=== PATIENT | female | born 1945 | race Caucasian/White ===

== ENCOUNTER 2018-01-27 04:30 | Inpatient (IN) | payer OTHER ==
[~2018-01-27] VITALS: Ht 167.6 cm; Wt 84.8 kg
--- NOTE | 2018-01-27 12:47 | Admission Core Measures ---
Acute Coronary Syndrome (CM) ACS Core Measures Acute Coronary Syndrome Diagnosis No Congestive Heart Failure (NEW) CHF Core Measures Congestive Heart Failure Diagnosis No Cerebrovascular Accident (NEW) CVA Core Measures CVA/TIA Diagnosis No Venous Thromboembolism VTE Core Alhaji (View Protocol) VTE Risk Factors Surgery No Mechanical VTE Prophylaxis d/t N/A MechProphylax Ordered No VTE Pharm Prophylaxis d/t NA PharmProphylax ordered Problem List As ranked by this Provider includes Assessment & Plan 1. Unilateral primary osteoarthritis, left hip HOME MEDS Home Med List No Known Home Medications
[2018-01-27] MEDS ORDERED: MIRALAX17 G1 PO (12:51)
[2018-01-27] MEDS ORDERED: PRILOSEC OTC20 M1 PO (12:51)
[2018-01-27] MEDS ORDERED: COLACE100 M1 PO (12:51)
[2018-01-27] MEDS ORDERED: DILAUDID2 M1 PO (12:51)
[2018-01-27] MEDS ORDERED: ASPIRIN EC81 M1 PO (12:51)
--- NOTE | 2018-01-27 12:55 | Patient Discharge Instructions ---
Discharge Instructions General Discharge Information You were seen/treated for: Left hip pain related to unilateral primary osteoarthritis You had these procedures: Left total hip replacement Watch for these problems: Increasing pain despite the use of pain medication Increasing redness, warmth or swelling Drainage of any type from incision Inability to bear weight on operative leg Persistent nausea and vomiting Fever greater than 101.5 degrees Do not soak the wound: Yes No bath, but you may shower: Yes Other wound care: Please keep wound clean and dry. No ointments or lotions of any type on or near incision at any time. No exceptions. Your dressing will be changed by your nurse on the second day after your surgery. Daily dry dressing changes are recommended each day thereafter. Do not soak your wound in a bath at any time until otherwise indicated by your surgeon. You may shower, please dry wound immediately after shower with a clean towel. Special Instructions: Aspirin: You are taking this medication to help prevent blood clot formation. Please take with food to protect your stomach lining. Please take as directed. Constipation: Pain medication can cause constipation. Dr. Sherman has recommended that you take Colace and miralax each day. You may discontinue this medication if you develop loose stool or diarrhea. If you wish to continue this medication, it is available over the counter. If you are unable to move your bowels after several days, if you are unable to pass gas and are developing bloating, nausea, or vomiting as a result, please contact your doctor. Diet Continue normal diet: Yes Recommended Diet: Regular Activity Full Activity/No Limits: No Activity Self Limited: Yes Pounds, do NOT lift more than: 10 Acute Coronary Syndrome Inclusion Criteria At DC or during hospital stay patient has or had the following: ACS DIAGNOSIS No Discharge Core Measures Meds if any: Prescribed or Continued at Discharge Meds if any: NOT Prescribed or Continued at Discharge Congestive Heart Failure Inclusion Criteria At DC or during hospital stay patient has or had the following: CHF DIAGNOSIS No Discharge Core Measures Meds if any: Prescribed or Continued at Discharge Meds if any: NOT Prescribed or Continued at Discharge Cerebrovascular accident Inclusion Criteria At DC or during hospital stay patient has or had the following: CVA/TIA Diagnosis No Discharge Core Measures Meds if any: Prescribed or Continued at Discharge Meds if any: NOT Prescribed or Continued at Discharge Venous thromboembolism Inclusion Criteria VTE Diagnosis No VTE Type NONE VTE Confirmed by (Test) NONE Discharge Core Measures - Per Current guidelines, there needs to be overlap - treatment for the first 5 days of Warfarin therapy. - If discharged on Warfarin prior to 5 days of - overlap therapy, the patient will need to be - assessed for post discharge needs including - *Post discharge parental anticoagulation - *Warfarin and/or parental anticoagulation education - *Follow up date to check INR post discharge At least 5 days overlap therapy as Inpatient No Meds if any: Prescribed or Continued at Discharge Note: Overlap Therapy is Warfarin and Anticoagulant Meds if any: NOT Prescribed or Continued at Discharge
--- NOTE | 2018-01-27 12:57 | Surgical Discharge Summary ---
Visit Information Visit Dates Admission Date: 01/27/18 Discharge Date: 01/28/2018 History of Present Illness Chief Complaint: Left hip pain related to unilateral primary osteoarthritis Medical History Isolation History: Standard Surgical History Pertinent Surgical History: non-contributory Review of Systems: See H&P Hospital Course Course Attending Physician: Carlos Sherman MD Primary Care Physician: Benjie Rodriguez MD Hospital Course: Patient was admitted to the hospital for an elective total joint replacement. The procedure was tolerated well and patient was transferred to a general surgical floor. Diet was advanced and tolerated.. The patient was evaluated and treated by physical therapy. At the time of hospital discharge, the vital signs were stable, neurovascular status was intact, and pain was controlled with the use of oral pain medications. Allergies: Coded Allergies: Penicillins (ANAPHYLAXIS 01/26/18) Disposition Summary Disposition Principal Diagnosis: Left hip unilateral primary osteoarthritis Additional Diagnosis: None Discharge Disposition: home health services Discharge Instructions General Discharge Information Code Status: Full Code Patient's Diet: Regular, advance as tolerated Patient's Activity: WBAT Follow-Up Instructions/Appts: Follow up with Dr. Sherman in 6 weeks from date of surgery. Please call office to arrange &/or confirm this appointment. Medications at Discharge Discharge Medications: Start taking the following new medications: Hydromorphone HCl (Dilaudid) 2 MG TABLET 1-2 Tablet ORAL EVERY 4-6 HOURS NEEDED as needed for PAIN Qty = 36 No Refills Docusate Sodium (Colace) 100 MG CAPSULE 1 Capsule ORAL TWICE DAILY Qty = 14 No Refills Instructions: DISCONTINUE USE IF YOU DEVELOP LOOSE STOOL OR DIARRHEA Polyethylene Glycol 3350 (Miralax) 17 GRAM POWD.PACK 1 Packet ORAL DAILY Qty = 7 No Refills Instructions: dissolve in water, DISCONTINUE USE IF YOU DEVELOP LOOSE STOOL OR DIARRHEA Omeprazole Magnesium (Prilosec Otc) 20 MG TABLET. 1 Tablet ORAL DAILY Qty = 30 No Refills Aspirin (Ecotrin*) 81 MG TABLET. 1 Tablet ORAL TWICE DAILY Qty = 60 No Refills
--- NOTE | 2018-01-27 15:12 | Operative Report ---
Operative/Inv Procedure Report Surgery Date: 01/27/18 Name of Procedure: Left total hip replacement Pre-Operative Diagnosis: Primary left hip DJD Post-Operative Diagnosis: Same Estimated Blood Loss: 300 Surgeon/Field Pipe Lines Supervisor: Lane MEDRANO,Carlos Rutherford Anesthesia: block Operative/Procedure Note Note: Description of Procedure: The patient was taken to the operating room and positively identified. After induction of spinal anesthesia and administration of appropriate pre-operative antibiotics, the patient was positioned supine on the operating room table and all bony prominences were well padded. After performing a surgical timeout, the left lower extremity was prepped and draped in the usual sterile fashion. A direct anterior approach was made to the left hip. The incision was carried sharply through superficial soft tissues to the level of the fascia. Meticulous hemostasis was maintained with Bovie electocautery. The fascia over the tensor fascia jasmina muscle was opened sharply and the interval between the TFL and the sartorius was entered bluntly taking care to stay lateral to the lateral femoral cutaneous nerve. Retractors were placed around the femoral neck and the pericapsular fat was identified. The ascending branches of the lateral femoral circumflex vessels were identified and carefully coagulated. The pericapsular fat and anterior capsule were then resected. A napkin ring osteotomy was performed and the femoral head was removed without difficulty. Attention was then turned to the acetabulum. After appropriate placement of retractors, the acetabulum was exposed. Soft tissue was cleaned from the acetabular margin and notch. Overhanging osteophytes were removed and the teardrop was exposed. The acetabulum was then sequentially reamed to accept a 54 mm [place] Tritanium hemispherical solid shell. This was impacted into place in the appropriate position and fitted with a 36 mm Trident X3 zero degree polyethylene insert. Attention was then turned to the femur. After performing the appropriate ligament releases, the proximal femur was exposed. It was then sequentially broached to accept a size #4 [place] Accolade II stem. This was trialed for leg length and stability. The trial component was removed and the final component was impacted into place. The trunnion was carefully cleaned and fit with a 36 mm, +0 Biolox delta ceramic femoral head. The hip was reduced and put through a full range of motion and found to be stable. The articular space was then irrigated with sterile saline. The periarticular soft tissues were infilitrated with Marcaine. The fascial layer was closed with interrupted #1 vicryl suture and the skin was re-approximated with interrupted 2 -0 vicryl. The skin was closed with a running 3-0 V-Lock suture. Steri-strips and a sterile dressing were applied. The patient was awakened and taken to the recovery room in satisfactory condition.
--- NOTE | 2018-01-27 15:13 | RADIOLOGY REPORT ---
EXAMINATION: XR HIP, LEFT CLINICAL INFORMATION: Left hip replacement COMPARISON: None TECHNIQUE: AP and cross table lateral view of the left hip FINDINGS: There is a left total hip arthroplasty with the components in the usual position of note the distal stem is not included on the lateral view. There is no periprosthetic fracture or suspicious area of lucency. Expected air in the soft tissues compatible with immediate postop change IMPRESSION: Left total hip arthroplasty without complication by x-ray. Of note the lateral view is slightly limited as the distal femoral component is not included in the [id number] the exam
[2018-01-27 16:05] VITALS: BP 138/80
--- NOTE | 2018-01-27 17:27 | PN- Orthopedic ---
Subjective Subjective: No acute post operative events reported. Pain controlled with PO meds thus far. No complaints of chest pain, shortness of breath and difficulty breathing. No complaints of nausea and vomitting. Has been oob and ambulated. Anticipates dc to home tomorrow. Objective Vital Signs and I&Os Vital Signs Date Time Temp Pulse Resp B/P B/P Pulse O2 O2 Flow FiO2 Mean Ox Delivery Rate 01/27 1605 97.7 66 18 138/80 95 Room Air Intake & Output 01/27 1600 01/27 0801/27 0000 01/26 1600 01/26 0800 01/26 0000 Intake Total Output Total Balance Patient 187 lb 187 lb Weight Physical Exam: General: Alert and oriented x3, no acute distress Cardiac: RRR, s1s2 Pulm: C TA bilaterally, non-labored respiratory effort Abd: Non-tender, non-distended Extremities: Moves all extremities, distal sensation grossly intact. Skin warm and well perfused. DP pulses palpable bilaterally. Bilateral calves soft and non-tender. Surgical site: Left hip: Dressing with small amount of serosanguinous staining proximal aspect. Thigh compartment soft. Assessment/Plan Assessment/Plan This is a 72 year old female, POD 0, s/p L THR -No home meds reported -Vanc: 1.5 g x1 additional dose -IV fluids overnight, will dc in am, diet as tolerated -Pain control with atc offirmev, po dilaudid and iv morphine prn -DVT ppx: asa 81 bid, alps and teds -Activity: OOB, wbat, assist at all times Anticipate dc to home tomorrow Will discuss poc with Dr. Sherman Core Measures Venous Thromboembolism VTE Risk Factors Surgery No Mechanical VTE Prophylaxis d/t N/A MechProphylax Ordered No VTE Pharm Prophylaxis d/t NA PharmProphylax ordered
[2018-01-27 19:00] VITALS: BP 118/60
[2018-01-27 21:00] VITALS: BP 156/68
[2018-01-27 22:46] VITALS: BP 130/60
[2018-01-28 04:00] VITALS: BP 118/64
[2018-01-28 07:54] LABS: ABSOLUTE BASOPHIL COUNT 0 /CUMM (0.0-0.2); ABSOLUTE EOSINOPHIL COUNT 0 /CUMM (0.0-0.7); ABSOLUTE GRANULOCYTE CT 6.6 /CUMM (1.4-6.5); ABSOLUTE LYMPH COUNT 5.2 /CUMM (1.2-3.4); ABSOLUTE MONOCYTE COUNT 0.6 /CUMM (0.10-0.60); BASOPHIL % 0.1 % (0.0-2.0); EOSINOPHIL % 0.1 % (0-5); HEMATOCRIT 29.8 % (37-47); MEAN CORPUSCULAR HGB CONC 32.8 G/DL (33.0-37.0); MEAN CORPUSCULAR VOLUME 82.4 FL (81.0-99.0); MEAN PLATELET VOLUME 6.9 FL (7.4-10.4); PLATELET COUNT 179 /CUMM (130-400); RBC DISTRIBUTION WIDTH 14.4 % (11.5-14.5); RED BLOOD CELL CT 3.62 /CUMM (4.20-5.40); WHITE BLOOD CELL COUNT 12.4 /CUMM (4.8-10.8)
--- NOTE | 2018-01-28 08:11 | PN- Orthopedic ---
Subjective Subjective: Awake, alert No complaints overnight Pain is well controlled, tolerating diet, denies nausea Worked with PT - has not cleared stairs yet Objective Vital Signs and I&Os Vital Signs Date Time Temp Pulse Resp B/P B/P Pulse O2 O2 Flow FiO2 Mean Ox Delivery Rate 01/28 0400 98.4 80 18 118/64 97 Room Air 01/27 2246 97.9 76 18 130/60 95 Room Air 01/27 2100 98.0 80 18 156/68 98 Room Air 01/27 1900 97.4 88 18 118/60 99 Room Air 01/27 1605 97.7 66 18 138/80 95 Room Air Intake & Output 01/28 1600 01/28 0800 01/28 0000 01/27 1600 01/27 0800 01/27 0000 Intake Total 660 1500 Output Total 900 200 Balance -240 1300 Intake, IV 600 600 Intake, Oral 60 900 Number 0 Bowel Movements Output, Urine 900 200 Patient 187 lb 187 lb Weight Physical Exam: General: alert and oriented times three Chest: clear anteriorly bilaterally, RRR Abd: softly distended, good bs Ext: warm, no edema, normosensate BLE, no calf tenderness, 5/5 LISY BLE Wd: dressed, dry, ice pack in place Assessment/Plan Assessment/Plan 72yo female s/p L THR pod 1 pain management PT- WBAT dc planning - home with services once cleared by PT All questions answered Core Measures Venous Thromboembolism VTE Risk Factors Surgery No Mechanical VTE Prophylaxis d/t N/A MechProphylax Ordered No VTE Pharm Prophylaxis d/t NA PharmProphylax ordered
[2018-01-28 08:23] VITALS: BP 130/80
== END 2018-01-28 12:30 | disposition home health service (06) | DRG 470 ==
LOC: SDA 04:30 → ENRESERV 14:11 → ENTRNSPT 15:18 → EDTRNSPTSTS 15:33 → EDTRNSPT 15:43 → 2NA 15:51 → CMPTRNSPT 15:54 → ENPENDDIS 01-28 08:28 → ENTRNSPT 01-28 12:19 → EDTRNSPT 01-28 12:25 → EDTRNSPTSTS 01-28 12:25 → EDTRNSPT 01-28 12:26 → 2NA 01-28 12:30 → CMPTRNSPT 01-28 12:41 → DELTRNSPT 01-28 12:42
PROVIDERS: Nurse Practitioner
PROC: 0SRB04A Replacement of Left Hip Joint with Ceramic on Polyethylene Synthetic Substitute, Uncemented, Open Approach (ICD-10-PCS; principal; 2018-01-27)
DX: M16.12 Unilateral primary osteoarthritis, left hip (principal); Z68.41 Body mass index [BMI] 40.0-44.9, adult; E11.9 Type 2 diabetes mellitus without complications; E66.01 Morbid (severe) obesity due to excess calories; K21.9 Gastro-esophageal reflux disease without esophagitis; Z98.84 Bariatric surgery status; Z87.891 Personal history of nicotine dependence; Z88.0 Allergy status to penicillin
CPT/HCPCS: 2NASP; 36592; 73502-LT; 82436; 97110-GO; 97116-GO; 97161-GP; 97530-GO; J0131; J0735; J1100; J2405; J2550; J3370; J3490; J7040; J7042